=== PATIENT | male | born 1965 | race Caucasian/White ===

== ENCOUNTER 2024-05-22 13:07 | Emergency (ER) | payer BC ==
[~2024-05-22 13:07] MED LIST: Iopamidol 370 76% 100 ML VIAL ONE
[2024-05-22] MEDS ORDERED: Morphine 4 MG/ML VIAL ONE ×2 (13:41→15:04)
[2024-05-22] MEDS ORDERED: Ondansetron PF 4 MG/2 ML Vial ONE (13:41)
[2024-05-22 13:51] LABS: ALT (SGPT) 17 U/L (8-55); AST (SGOT) 15 U/L (5-34); Albumin 3.9 g/dL (3.5-5.0); Alkaline Phosphatase 49 U/L (40-110); Anion Gap 17 mmol/L (10-20); BUN (Urea Nitrogen) 17 mg/dL (8.4-25.7); Bilirubin, Total 0.8 mg/dL (0.2-1.2); Calc. Creatinine Clearance 0 mL/min (70-130); Calcium 9.4 mg/dL (7.8-10.44); Carbon Dioxide 22 mmol/L (22-29); Chloride 108 mmol/L (98-107); Estimated GFR 67; Globulin 2.6 g/dL (2.4-3.5); Glucose 128 mg/dL (70-105); Lipase 15 U/L (8-78); Potassium 4.7 mmol/L (3.5-5.1); Protein, Total 6.5 g/dL (6.0-8.3); Sodium 142 mmol/L (136-145)
[2024-05-22 13:56] LABS: Band 21 % (5-11); Hematocrit 42.8 % (42.0-52.0); Hemoglobin 13.5 g/dL (14.0-18.0); Hypochromia SLIGHT = 6-15 cells (100X) (0-5/hpf); Lymphocytes 10 % (21-51); MDiff Complete? YES; Mean Corpuscular HGB CONC 31.5 g/dL (32.0-36.0); Mean Corpuscular Hemoglobin 29.4 pg (27.0-31.0); Mean Corpuscular Volume 93.2 fl (78.0-98.0); Mean Platelet Volume 7.8 fL (7.4-10.4); Monocytes 6 % (0-10); Neutrophil 63 % (42-75); Platelet Adequacy Comment Appears Adequate; Platelet Count 181 10x3/uL (130-400); RBC Distribution Width 12.3 % (11.5-14.5); White Blood Cell (WBC) Count 9.5 10x3/uL (4.8-10.8)
[2024-05-22] MEDS ORDERED: Lactated Ringer's 1,000 ML ONE ×3 (14:11→15:51)
[2024-05-22 14:28] LABS: Bilirubin Negative (Negative); Blood, Urine Negative (Negative); Glucose, Urine (Dipstick) Negative (Negative); Ketone, Urine Negative (Negative); Leukocyte Negative (Negative); Nitrite Negative (Negative); Protein, Urine (Dipstick) Negative (Neg-Trace); Urobilinogen 0.2 mg/dL (Less than 2); pH, Urine 5.5 (5.0-9.0)
[2024-05-22 14:30] LABS: Bacteria/HPF 1+ HPF (None Seen); CAUTI Indications for Culture Pelvic or flank pain; Clarity Hazy (Clear); RBC/HPF 0-3 HPF (0-3); Specific Gravity, Urine 1.025 (1.002-1.036); Squamous Epithelial 0-3 HPF (0-3); WBC/HPF 0-3 HPF (0-3)
[2024-05-22 14:31] LABS: Urine Culture Reflex No No
[2024-05-22] MEDS ORDERED: Sodium Chloride 0.9% 100 ML ONE (15:04)
[2024-05-22] MEDS ORDERED: Piperacillin/Tazobactam 4.5 GM VIAL ONE (15:04)
[2024-05-22] MEDS ORDERED: HYDROmorphone 0.5 MG/0.5 ML SYRINGE ONE ×2 (15:52→18:05)
[2024-05-22] MEDS ORDERED: Ketorolac Tromethamine 30 MG (1 mL) VIAL ONE (19:07)
[2024-05-22] MEDS ORDERED: Acetaminophen 500 MG TAB ONE (19:07)
== END 2024-05-22 20:04 | disposition short-term general hospital (02) ==
LOC: MADERS 13:07
DX: G89.18 Other acute postprocedural pain (principal); K52.9 Noninfective gastroenteritis and colitis, unspecified; A41.9 Sepsis, unspecified organism; I10 Essential (primary) hypertension; F17.210 Nicotine dependence, cigarettes, uncomplicated; Z79.899 Other long term (current) drug therapy
CPT/HCPCS: 74177; 80053; 81001; 83605; 83690; 85025; 87040; 94760; 96361; 96365; 96375; 96376; J1170; J1885; J2272; J2405; J2543; J7120; Q9967

== ENCOUNTER 2024-09-03 20:38 | Emergency (ER) | payer BC ==
[2024-09-03] MEDS ORDERED: Morphine 4 MG/ML VIAL ONE ×2 (21:12→21:58)
[2024-09-03] MEDS ORDERED: hydrALAZINE 20 MG/ML VIAL ONE ×2 (21:12→21:36)
[2024-09-03] MEDS ORDERED: Ketorolac Tromethamine 30 MG (1 mL) VIAL ONE (21:12)
[2024-09-03] MEDS ORDERED: Sodium Chloride 0.9% 1,000 ML ONE (21:12)
[2024-09-03 21:16] LABS: #Basophils 0.1 thou/uL (0.0-0.2); #Eosinophils 0.1 thou/uL (0.0-0.7); #Lymphocytes 1.5 thou/uL (1.20-3.40); #Monocytes 0.5 thou/uL (0.11-0.59); #Neutrophils 4.6 thou/uL (1.40-6.50); %Basophils 1.4 % (0.0-1.0); %Eosinophils 1.1 % (0.0-10.0); %Monocytes 7.3 % (0.0-10.0); %Neutrophils 68.3 % (42.0-75.0); Hematocrit 45.9 % (42.0-52.0); Hemoglobin 14.9 g/dL (14.0-18.0); Mean Corpuscular HGB CONC 32.4 g/dL (32.0-36.0); Mean Corpuscular Volume 89.5 fl (78.0-98.0); Mean Platelet Volume 8.3 fL (7.4-10.4); Platelet Count 264 10x3/uL (130-400); RBC Distribution Width 13.2 % (11.5-14.5); Red Blood Cell (RBC) Count 5.14 mill/uL (4.70-6.10); White Blood Cell (WBC) Count 6.8 10x3/uL (4.8-10.8)
[2024-09-03 21:35] LABS: ALT (SGPT) 14 U/L (8-55); AST (SGOT) 13 U/L (5-34); Albumin 3.9 g/dL (3.5-5.0); Alkaline Phosphatase 50 U/L (40-110); Anion Gap 13 mmol/L (10-20); BUN (Urea Nitrogen) 16 mg/dL (8.4-25.7); Bilirubin, Total 0.8 mg/dL (0.2-1.2); Calc. Creatinine Clearance 0 mL/min (70-130); Calcium 8.8 mg/dL (7.8-10.44); Carbon Dioxide 20 mmol/L (22-29); Chloride 113 mmol/L (98-107); Estimated GFR 96; Globulin 2.7 g/dL (2.4-3.5); Glucose 120 mg/dL (70-105); Lipase 21 U/L (8-78); Potassium 4.3 mmol/L (3.5-5.1); Protein, Total 6.6 g/dL (6.0-8.3); Sodium 142 mmol/L (136-145)
[2024-09-03 22:30] LABS: Bilirubin Negative (Negative); Blood, Urine Negative (Negative); Clarity Clear (Clear); Glucose, Urine (Dipstick) Negative (Negative); Ketone, Urine Negative (Negative); Leukocyte Negative (Negative); Nitrite Negative (Negative); Protein, Urine (Dipstick) Negative (Neg-Trace); Urobilinogen 0.2 mg/dL (Less than 2)
[2024-09-03 22:31] LABS: CAUTI Indications for Culture Pelvic or flank pain; Squamous Epithelial 0-3 HPF (0-3); WBC/HPF None Seen HPF (0-3)
[2024-09-03 22:33] LABS: Urine Culture Reflex No No
== END 2024-09-03 22:50 | disposition home or self-care (01) ==
LOC: MADERS 20:38
DX: N13.2 Hydronephrosis with renal and ureteral calculous obstruction (principal); F17.290 Nicotine dependence, other tobacco product, uncomplicated; I10 Essential (primary) hypertension; Z85.038 Personal history of other malignant neoplasm of large intestine
CPT/HCPCS: 74176; 80053; 81001; 83690; 85025; 96361; 96374; 96375; 96376; J0360; J1885; J2272; J7030